=== PATIENT | male | born 1995 | race Caucasian/White ===

== ENCOUNTER 2022-12-12 21:04 | Emergency (ER) | payer SELFPAY ==
[2022-12-12 21:23] VITALS: BP 96/63; PULSE 100; RESP 16; TEMP 99.8; BMI 22.9
[2022-12-12] MEDS ORDERED: CLINDAMYCIN HCL 300 MG CAPSULE PO ONE (22:15)
[2022-12-12] MEDS ORDERED: CLINDAMYCIN HCL 150 MG CAPSULE (FP) ONE (22:20)
== END 2022-12-12 22:29 | disposition home or self-care (01) ==
LOC: FER 21:04
PROC: 0H98XZZ Drainage of Buttock Skin, External Approach (ICD-10-PCS; principal; 2022-12-12)
DX: L05.01 Pilonidal cyst with abscess (principal)
CPT/HCPCS: 87070; 87205; 99283-25